=== PATIENT | male | born 1950 | race African-American/Black ===

== ENCOUNTER 2017-04-28 15:48 | Emergency (ER) | payer OTHER ==
[2017-04-28 16:36] VITALS: BP 160/80; PULSE 60; TEMP 97.5; BMI 21.7
--- NOTE | 2017-04-28 19:42 | PDOC ---
History of Present Illness - General Chief Complaint: Altered Mental Status Stated Complaint: ALTERED MENTAL STATUS Time Seen by Provider: 04/28/17 19:13 History Source: Patient - History of Present Illness Initial Comments: 04/28/17 20:43 66 year old male BIB [place] and [place], as per patient, he was in the [place], drank vodka less than usual amount this morning with friends, patient reports feeling dizzy, and " almost passing out." patient denies eating anything today. patient has a history of heart disease and pace maker. PMD: [facility]. Past History - Past Medical History Allergies/Adverse Reactions: Allergies Allergy/AdvReac Type Severity Reaction Status Date / Time No Known Allergies Allergy Verified 04/28/17 16:31 Home Medications: Ambulatory Orders Unobtainable [Unobtainable] 04/28/17 Cardiac Disorders: Yes (cad) COPD: No Diabetes: Yes GI Disorders: Yes (GERD) HTN: Yes Hypercholesterolemia: Yes - Surgical History Cardiac Surgery: Yes (ppm) - Suicide/Smoking/Psychosocial Hx Smoking History: Current every day smoker Have you smoked in the past 12 months: Yes Number of Cigarettes Smoked Daily: 10 Information on smoking cessation initiated: Yes 'Breaking Loose' booklet given: 04/28/17 Hx Alcohol Use: Yes Drug/Substance Use Hx: Yes (damon, crack coccaine) Substance Use Type: None Review of Systems - Review of Systems Able to Perform ROS?: Yes Is the patient limited Telugu proficient: No Constitutional: No: Symptoms Reported, See HPI, Chills, Diaphoresis, Fever, Loss of Appetite, Malaise, Night Sweats, Weakness, Weight Stable, Unintentional Wgt. Loss, Unexplained wgt Loss, Other Cardiac (ROS): Yes: Lightheadedness, Syncope (near ). No: Symptoms Reported, See HPI, Chest Pain, Edema, Irregular Heart Rate, Palpitations, Chest Tightness , Other Neurological: Yes: Dizziness *Physical Exam - Vital Signs Last Vital Signs Temp Pulse Resp BP Pulse Ox 97.5 F L 60 18 160/80 100 04/28/17 16:31 04/28/17 16:31 04/28/17 16:31 04/28/17 16:31 04/28/17 16:31 - Physical Exam General Appearance: Yes: Appropriately Dressed Respiratory/Chest: positive: Lungs Clear, Normal Breath Sounds Cardiovascular: positive: Regular Rhythm, Regular Rate Gastrointestinal/Abdominal: positive: Normal Bowel Sounds, Tender (generalized) , Soft Musculoskeletal: positive: Normal Inspection Extremity: positive: Normal Capillary Refill, Normal Inspection Integumentary: positive: Normal Color, Dry, Warm Neurologic: positive: Alert, Normal Mood/Affect, Other (no slurred speech) Heart Score/ECG Review - ECG Intrepretation Rhythm: PAC(s) Comment:: 04/28/17 23:32 Atrial paced rhythm with PAcs, septal infarct ED Treatment Course - LABORATORY CBC & Chemistry Diagram: 04/28/17 20:42 04/28/17 21:46 - RADIOLOGY Chest X-Ray Result: No Infiltrates (official read pending.) Medical Decision Making - Medical Decision Making 04/28/17 21:21 A: Dizziness P: CBC CMP EKG chest xray cardiac enzymes CT heas=d 04/28/17 22:48 Patient alert ox3 . v/s stable. son is at bedside. *DC/Admit/Observation/Transfer Diagnosis at time of Disposition: Alcohol abuse, Syncope, near - Discharge Dispostion Disposition: HOME - Referrals - Patient Instructions Printed Discharge Instructions: DI for Alcohol Abuse, Dizziness, Nonvertigo Additional Instructions: drink plenty of fluids. avoid alcohol use. follow up with your doctor as soon as possible. return to the ER if symptoms worsen, - Post Discharge Activity
[2017-04-28 21:05] LABS: BASO % 1.5 % (0-2.0); EOS % 1.8 % (0-4.5); HEMATOCRIT 39.8 % (35.4-49); HEMOGLOBIN 12.8 GM/dL (11.7-16.9); LYMPH % 48.6 % (8-40); MCH 28.2 pg (25.7-33.7); MCHC 32.1 g/dl (32.0-35.9); MEAN CELL VOLUME 87.8 fl (80-96); MEAN PLT VOLUME 7.1 fl (7.5-11.1); MONO % 4.7 % (3.8-10.2); NEUT % 43.4 % (42.8-82.8); PLATELET COUNT 452 K/MM3 (134-434); RBC 4.53 M/mm3 (4.00-5.60); RDW 15.6 % (11.9-15.9); WHITE BLOOD COUNT 4.4 K/mm3 (4.0-10.0)
[2017-04-28 21:05] LABS: INR 0.99 (0.82-1.09); PROTHROMBIN TIME (PATIENT) 11.2 SEC (9.98-11.88)
[2017-04-28 22:27] LABS: ALBUMIN 3.1 g/dl (3.4-5.0); ANION GAP 9 (8-16); BILIRUBIN,TOTAL 0.1 mg/dL (0.2-1.0); BLOOD UREA NITROGEN 7 mg/dL (7-18); CHLORIDE 112 mmol/L (98-107); CO2 24 mmol/L (21-32); CREATININE 0.8 mg/dL (0.7-1.3); GLUCOSE,RANDOM 97 mg/dL (74-106); POTASSIUM 4.1 mmol/L (3.5-5.1); SGOT/AST 14 U/L (15-37); SGPT/ALT 21 U/L (12-78); SODIUM 145 mmol/L (136-145); TOT PROT 6.9 g/dl (6.4-8.2)
[2017-04-28 22:29] LABS: ALK PHOS 79 U/L (45-117)
--- NOTE | 2017-04-30 08:08 | EKG ---
Test Reason : Blood Pressure : / mmHG Vent. Rate : 064 BPM Atrial Rate : 064 BPM P-R Int : 178 ms QRS Dur : 094 ms QT Int : 412 ms P-R-T Axes : 051 -15 007 degrees QTc Int : 425 ms Atrial-paced rhythm WITH PREMATURE ATRIAL COMPLEXES SEPTAL INFARCT , AGE UNDETERMINED ABNORMAL ECG NO PREVIOUS ECGS AVAILABLE Confirmed by GAB MCKEON MD ([id number]) on 04/30/2017 8:07:39 AM Referred By: Confirmed By:GAB MCKEON MD
== END 2017-04-28 23:39 | disposition home or self-care (01) ==
LOC: JER 15:48
DX: R55 Syncope and collapse (principal); F10.120 Alcohol abuse with intoxication, uncomplicated; Y90.6 Blood alcohol level of 120-199 mg/100 ml; I25.10 Atherosclerotic heart disease of native coronary artery without angina pectoris; I10 Essential (primary) hypertension; F17.210 Nicotine dependence, cigarettes, uncomplicated; Z95.0 Presence of cardiac pacemaker; E11.9 Type 2 diabetes mellitus without complications; E78.00 Pure hypercholesterolemia, unspecified; K21.9 Gastro-esophageal reflux disease without esophagitis
CPT/HCPCS: 36415; 70450-TC; 71045-TC-FY; 80053; 80307; 82550; 82553; 82962; 84484; 85025; 85610; 93005; 93010; 99283-25